=== PATIENT | female | born 1985 | race Caucasian/White ===

== ENCOUNTER 2017-03-12 03:47 | Emergency (ER) | payer OTHER ==
--- NOTE | ~2017-03-12 | CT2 ---
[facility] A Service of [facility] & [facility] RADIOLOGY TEXT RESULTS PATIENT: JON RANKIN LOCATION: [facility] : 83 UNIT #: [id number] AGE: [address]: Pedrito Villalobos MD SEX: F ORDER DR: [id number] [facility] [address] [place], [place] [address] [id number] MR#: [id number] Acc #: [id number] NAME: JON RANKIN : 1985 SEX: F STUDY DATE/TIME: 03/12/2017 6:33 UNIT: MATTIE ROOM: STUDY DESCRIPTION: CT Abd and Pelv W Cont Attending Physician: Pedrito Villalobos M.D. Ordering Physician: Quinn Narvaez M.D. Primary Care Physician: Elijah Loredo M.D. MEDICAL IMAGING REPORT This report is preliminary unless electronic signature is present EXAM CT abdomen and pelvis without IV contrast COMPARISON None. INDICATION 32-year-old female with pelvic and low back pain as well as hematuria for [address] imaging abdomen and pelvis was performed after IV administration of 100 mL of Isovue-370. Coronal and sagittal reformats were constructed. This CT exam was performed with one or more of the following radiation dose reduction techniques: automatic exposure control, adjustment of mA and/or kV according to patient size, and iterative reconstruction. Mild degenerative change at the pubic symphysis. No acute fractures or suspicious osseous lesions. Small posterior disc protrusions at L1-L2 and L5-S1. 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 There is mild circumferential uniform thickening of the distal esophagus, perhaps reflecting esophagitis. There is mild nonspecific intrahepatic periportal edema. There is mild hepatomegaly with hepatic length of 16 cm. Gallbladder, pancreas, spleen, adrenal glands are unremarkable. There is dilatation and mural enhancement of both ureters, most consistent with an ascending pyelitis. No CT findings of acute pyelonephritis. Urinary bladder is unremarkable. Involuted corpus luteum cyst in the left ovary. No definite adnexal masses. There may be trace free fluid in the pelvic cul-de-sac, likely physiologic. Inspissated stool is seen within the colon throughout. No evidence of bowel obstruction. The appendix is not definitively seen and may be STS. [facility] A Service of [facility] RADIOLOGY TEXT RESULTS PATIENT: JON RANKIN LOCATION: [facility] : 83 UNIT #: [id number] AGE: [address]: Pedrito Villalobos MD SEX: F ORDER DR: obscured by crowed bowel loops in the right hemiabdomen. No secondary findings of acute appendicitis. No pneumoperitoneum. No adenopathy. Abdominal aorta is normal in course and caliber, patency its main branches. No evidence of venous thrombosis. There is admixture artifact at the portal confluence of the superior mesenteric vein. There is a nonspecific, swirling appearance of the mesenteric vein in the upper abdomen without evidence of volvulus or bowel obstruction. There is no evidence of small bowel malrotation. IMPRESSION 1. Diffuse distension of the ureters with diffuse enhancement of the ureteral hopson. These are findings most suggestive of an ascending pyelitis. There are no CT findings of an acute pyelonephritis at this time. Clinical correlation and correlation with urinalysis is recommended. 2. Circumferential thickening of the distal esophagus, perhaps reflecting reflux esophagitis. Correlation with endoscopy as an outpatient is recommended. 3. Mild hepatomegaly. Nonspecific intrahepatic periportal edema. 4. Multilevel posterior disc protrusions of the lumbar spine. 5. Questionable trace free fluid the pelvis, likely physiologic. 6. Large diffuse colonic stool burden with inspissated stool throughout. 7. Nonspecific swirling of the superior mesenteric vein. There is no evidence of malrotation, volvulus or bowel obstruction. Dictated by... Josep Minaya M.D. THIS IS AN ELECTRONICALLY VERIFIED REPORT Josep Minaya M.D. at 03/21/2017 9:13 PM BARRY/germán TD: 03/13/2017 03:35 JOB #: [id number] MEDICAL IMAGING REPORT Page 1 of 1 COPY
[2017-03-12 05:27] LABS: URINE SOURCE CLEAN CATCH
[2017-03-12 05:36] LABS: BASOPHIL% 0.1 % (0-2.5); EOSINOPHIL# 0.1 X10e3 (0-0.7); EOSINOPHIL% 0.7 % (0.0-7.0); HEMATOCRIT 44.9 % (35.0-45.0); HEMOGLOBIN 14.9 gm/dL (12.0-16.0); LYMPHOCYTE# 0.8 X10e3 (1.0-3.5); LYMPHOCYTE% 7.5 % (17.0-45.0); MEAN CELL VOLUME 88.9 FL (83-96); MEAN CORPUSCULAR HEMOGLOBIN 29.4 PG (28-34); MEAN CORPUSCULAR HGB CONC 33.1 g/dL (30-36); MONOCYTE# 0.9 X10e3 (0-1.0); MONOCYTE% 8.6 % (3.0-12.0); NEUTROPHIL# 8.4 X10e3 (1.5-7.1); NEUTROPHIL% 83.1 % (40-75); PLATELET COUNT 305 X10e3 (140-420); RED BLOOD COUNT 5.05 X10e (3.90-5.30); WHITE BLOOD COUNT 10.2 X10e3 (4.0-10.5)
[2017-03-12 05:38] LABS: DIFF IND NO
[2017-03-12 05:43] LABS: URINE APPEARANCE CLOUDY; URINE BILIRUBIN NEG (NEG); URINE BLOOD 1+ (NEG); URINE COLOR YELLOW; URINE GLUCOSE NEG (NEG); URINE KETONE NEG (NEG); URINE LEUKOCYTE ESTERASE 3+ (NEG); URINE NITRATE NEG (NEG); URINE PH 6.5 (5-8); URINE PROTEIN 2+ (NEG); URINE SPECIFIC GRAVITY 1.009 (1.003-1.035); URINE UROBILINOGEN 0.2 MG/DL (NEG)
[2017-03-12 05:45] LABS: CULTURE INDICATED? YES; URINE BACTERIA AUWI 3+ (NEGATIVE); URINE SQUAMOUS EPITHELIAL CELL OCC /[HPF]; UWBCS1 AUWI 100-200 (0-5)
[2017-03-12 06:09] LABS: ALBUMIN SERUM 4.5 g/dL (3.5-5.0); BILIRUBIN, DIRECT 0.1 mg/dL (0.0-0.2); BILIRUBIN,INDIRECT 0.5 mg/dL (0.0-0.9); BILIRUBIN,TOTAL 0.6 mg/dL (0.2-2.0); BUN/CREATININE RATIO 11.42; CALCIUM SERUM 8.9 mg/dL (8.4-10.2); CREATININE SERUM 0.7 mg/dL (0.6-1.4); GLOM FILT RATE Estimated 113.8 mL/min (>60); POTASSIUM 3.4 mmol/L (3.5-5.1); PROTEIN TOTAL SERUM 8.1 g/dL (6.0-8.3)
[2017-03-14 21:31] LABS: CHLAMYDIA TRACH Not Detected (Not Detected); N GONOR Not Detected (Not Detected)
== END 2017-03-12 08:25 | disposition home or self-care (01) ==
LOC: CED 03:47
PROVIDERS: Emergency Medicine
DX: N39.0 Urinary tract infection, site not specified (principal)
CPT/HCPCS: 36415; 74177; 80048; 80076; 81003; 82150; 83690; 84703; 85025; 87086; 87088; 87186; 87491; 87591; 87808; 87905; 96361; 96374; 99284; J1885; Q9967